=== PATIENT | male | born 1955 | race Caucasian/White ===

== ENCOUNTER 2020-08-22 07:59 | Day surgery (SDC) | payer MEDICARE ==
[2020-08-22] MEDS ORDERED: Dextrose 5%-Lactated Ringers 1,000 ML IV SCH (08:15)
[2020-08-22] MEDS ORDERED: Propofol 200 MG/20 ML SDV ONE (09:22)
[2020-08-22] MEDS ORDERED: fentaNYL 100 MCG/2 ML SDV ONE (09:22)
[2020-08-22] MEDS ORDERED: Midazolam 1 MG/ML 2 ML SDV ONE (09:22)
--- NOTE | 2020-09-01 09:10 | OR ---
DATE OF PROCEDURE: 08/22/2020 SURGEON: Danis Paulson MD PREOPERATIVE DIAGNOSIS: Indications for screening colonoscopy. POSTOPERATIVE DIAGNOSIS: Screening colonoscopy showing 3 colonic polyps. OPERATIVE PROCEDURE: Flexible colonoscopy with polypectomy by snare technique x3. ANESTHESIA: IV sedation. INDICATIONS FOR PROCEDURE: A 65-year-old presenting with indications for screening colonoscopy. He was noted to have some macrocytic anemia, which typically would not be associated with blood loss per se. The plan is to proceed with a colonoscopy with biopsies and/or polypectomy as indicated. Potential risks including bleeding and perforation were discussed, and the patient wishes to proceed. DETAILS OF PROCEDURE: The patient was taken to the operating room and placed in a left lateral decubitus position. IV sedation was administered after which the initial digital rectal exam was performed and was unremarkable. Colonoscope was then passed into the rectum with retroflexion revealing uncomplicated hemorrhoidal columns. Scope was then passed to the level of the cecum. The prep was quite good, only a small amount of liquid stool was present. There were no diverticula or areas of colitis. There were 3 small polyps falling in the range of 2 mm to 4 mm. One was located at 50 cm from the dentate line and 2 more or less side by side at 15 cm from the dentate line. All 3 were separately excised and sent for histologic evaluation. Good hemostasis at the polypectomy sites was confirmed, and the procedure was then concluded. Recommendation would be to repeat the colonoscopy in 3 years. Danis Paulson MD /[id number]
== END 2020-08-22 12:32 | disposition home or self-care (01) ==
LOC: JP.SDS 07:59
PROVIDERS: ATTEND Surgery
DX: Z12.11 Encounter for screening for malignant neoplasm of colon (principal); D12.6 Benign neoplasm of colon, unspecified; K64.9 Unspecified hemorrhoids
CPT/HCPCS: 45385; 88305; J2250; J2704; J3010; J7121

== ENCOUNTER 2023-12-22 17:10 | Inpatient (IN) | payer MEDICARE ==
[2023-12-22 18:45] LABS: BASOPHILS PERCENT AUTO 0.2 % (0.1-1.3); EOSINOPHILS PERCENT AUTO 0.2 % (0.0-5.4); HEMATOCRIT 34.6 % (38.4-49.7); HEMOGLOBIN 12.6 g/dL (12.9-16.9); IMMATURE GRAN PERCENT AUTO 0.2 % (0.0-0.7); LYMPHOCYTES ABSOLUTE AUTO 2.36 K/uL (0.8-3.3); LYMPHOCYTES PERCENT AUTO 40.5 % (11.4-47.7); MEAN CORPUSCULAR HEMOGLOBIN 38.1 pg (31.6-35.5); MEAN CORPUSCULAR HGB CONC 36.4 g/dL (31.6-35.5); MEAN CORPUSCULAR VOLUME 104.5 fL (81.4-99.0); MONOCYTES ABSOLUTE AUTO 0.53 K/uL (0.20-0.90); MONOCYTES PERCENT AUTO 9.1 % (3.3-12.6); NEUTROPHILS ABSOLUTE AUTO 2.91 K/uL (1.0-7.6); NEUTROPHILS PERCENT AUTO 49.8 % (40.0-78.1); PLATELET COUNT,PLT 174 K/uL (130-375); RED BLOOD CELL COUNT 3.31 M/uL (4.14-5.76); WHITE BLOOD CELL COUNT,WBC 5.8 K/uL (3.2-11.0)
[2023-12-22 18:47] LABS: BASOPHILS ABSOLUTE AUTO 0.01 K/uL (0.00-0.10); EOSINOPHILS ABSOLUTE AUTO 0.01 K/uL (0.00-0.40); IMMATURE GRAN ABSOLUTE AUTO 0.01 K/uL (0.00-0.23)
[2023-12-22 19:06] LABS: AMPHETAMINES SCREEN, URINE NEGATIVE (NEGATIVE); BARBITURATE SCREEN,URINE NEGATIVE (NEGATIVE); BENZODIAZEPINES SCREEN,URINE NEGATIVE (NEGATIVE); METHADONE SCREEN, URINE NEGATIVE (NEGATIVE); METHAMPHETAMINES SCREEN, URINE NEGATIVE (NEGATIVE); OXYCODONE SCREEN,URINE NEGATIVE (NEGATIVE); PROPOXYPHENE SCREEN,URINE NEGATIVE (NEGATIVE); THC SCREEN,URINE 50 NG/ML NEGATIVE (NEGATIVE)
[2023-12-22 19:18] LABS: CHLORIDE,CL 93 mmol/L (100-108); POTASSIUM,K 4.1 mmol/L (3.6-5.2); SODIUM,NA 127 mmol/L (140-148)
[2023-12-22 19:19] LABS: A/G RATIO 0.6 (1.2-2.2); ALBUMIN 2.8 g/dL (3.4-5.0); ANION GAP 16.1 mmol/L (5.0-14.0); BLOOD UREA NITROGEN,BUN 6 mg/dL (7-18); CALCIUM 8.3 mg/dL (8.5-10.1); CARBON DIOXIDE,CO2 22 mmol/L (21-32); CREATININE 0.8 mg/dL (0.8-1.3); EST CRCL DRUG DOSING (CG) 67.92 mL/min; ESTIMATED GFR 96 mL/min (>60); GLUCOSE RANDOM 85 mg/dL (74-106); PROTEIN TOTAL,TP 7.3 g/dL (6.4-8.2)
[2023-12-22 19:20] LABS: ALANINE AMINOTRANSFERASE,ALT 61 U/L (12-78); ALKALINE PHOSPHATASE 130 U/L (46-116); ASPARTATE AMNIOTRANSFERASE,AST 138 U/L (15-37); BILIRUBIN TOTAL 0.4 mg/dL (0.2-1.0)
[2023-12-22] MEDS: Sodium Chloride 0.9% 1,000 ML IV SCH ×2 (19:31→20:20)
[2023-12-22 19:32] LABS: MAGNESIUM 1.9 mg/dL (1.8-2.4)
[2023-12-22] MEDS ORDERED: LORazepam 1 MG Tab PO ONE (20:11)
[2023-12-22 20:20] LABS: INR 1.1; PROTHROMBIN TIME 11.2 sec (9.2-10.6)
[2023-12-22] MEDS: LORazepam 2 MG/ML SDV IVPUSH ONE (20:21)
[2023-12-22] MEDS ORDERED: Albuterol 0.083% 2.5 MG/3 ML Neb Soln NEB PRN (22:27)
[2023-12-22] MEDS: Pantoprazole 40 MG Vial IV ONE (23:22)
[2023-12-22] MEDS: Gabapentin 100 MG Cap PO SCH (23:23)
[2023-12-22] MEDS: LORazepam 2 MG/ML SDV IV SCH (23:23)
[2023-12-22] MEDS: LORazepam 1 MG Tab PO ONE (23:23)
[2023-12-22] MEDS: Melatonin 3 MG Tab PO SCH (23:23)
[2023-12-22] MEDS: Nicotine 21 MG/24 Hr Patch TRDERM PRN (23:25)
[2023-12-22] MEDS: Ondansetron 4 MG/2 ML SDV IV PRN (23:36)
[2023-12-23 04:49] LABS: HEMATOCRIT 30.8 % (38.4-49.7); HEMOGLOBIN 11.1 g/dL (12.9-16.9); MEAN CORPUSCULAR HEMOGLOBIN 37.5 pg (31.6-35.5); MEAN CORPUSCULAR VOLUME 104.1 fL (81.4-99.0); RED BLOOD CELL COUNT 2.96 M/uL (4.14-5.76); WHITE BLOOD CELL COUNT,WBC 5.7 K/uL (3.2-11.0)
[2023-12-23 05:05] LABS: INR 1.2
[2023-12-23 05:10] LABS: ALANINE AMINOTRANSFERASE,ALT 51 U/L (12-78); ALBUMIN 2.4 g/dL (3.4-5.0); ALKALINE PHOSPHATASE 109 U/L (46-116); ASPARTATE AMNIOTRANSFERASE,AST 124 U/L (15-37); BILIRUBIN TOTAL 0.6 mg/dL (0.2-1.0); BLOOD UREA NITROGEN,BUN 3 mg/dL (7-18); CALCIUM 8.1 mg/dL (8.5-10.1); CARBON DIOXIDE,CO2 25 mmol/L (21-32); CHLORIDE,CL 102 mmol/L (100-108); CREATININE 0.8 mg/dL (0.8-1.3); EST CRCL DRUG DOSING (CG) 66.98 mL/min; ESTIMATED GFR 96 mL/min (>60); GLUCOSE RANDOM 85 mg/dL (74-106); PROTEIN TOTAL,TP 6.1 g/dL (6.4-8.2); SODIUM,NA 134 mmol/L (140-148)
[2023-12-23 05:11] LABS: A/G RATIO 0.7 (1.2-2.2)
[2023-12-23] MEDS: Sodium Chloride 0.9% 1,000 ML IV SCH (05:12)
[2023-12-23] MEDS: Pantoprazole 40 MG Tab.CR PO SCH (07:30)
[2023-12-23] MEDS: Sodium Chloride 0.9% 10 ML Syringe FLUSH ONE (08:45)
[2023-12-23] MEDS: Folic Acid 1 MG Tab PO SCH (08:45)
[2023-12-23] MEDS: Thiamine 100 MG Tab PO SCH (08:45)
[2023-12-23] MEDS: Iopamidol 612 MG/ML 100 ML Bottle IV SCH (09:52)
[2023-12-23] MEDS: Sodium Chloride 0.9% 80 ML IV SCH (09:52)
[2023-12-23] MEDS: LORazepam 1 MG Tab PO SCH (11:56)
[2023-12-23] MEDS: Levothyroxine 50 MCG Tab PO ONE (14:08)
[2023-12-23] MEDS: Acetaminophen 325 MG Tab PO PRN (22:30)
[2023-12-23] MEDS: Albuterol/Ipratropium 3.0-0.5 MG/3 ML Neb Soln NEB SCH (22:58)
[2023-12-23] MEDS: Haloperidol Lactate 5 MG/ML SDV IVPUSH PRN (23:03)
[2023-12-24] MEDS: Sodium Chloride 0.9% 500 ML IV ONE (01:10)
[2023-12-24] MEDS: Sodium Chloride 0.9% 1,000 ML IV SCH ×2 (02:29→17:21)
[2023-12-24 04:51] LABS: HEMATOCRIT 30.4 % (38.4-49.7); HEMOGLOBIN 10.5 g/dL (12.9-16.9); MEAN CORPUSCULAR HGB CONC 34.5 g/dL (31.6-35.5); MEAN CORPUSCULAR VOLUME 110.1 fL (81.4-99.0); RED BLOOD CELL COUNT 2.76 M/uL (4.14-5.76); WHITE BLOOD CELL COUNT,WBC 9.3 K/uL (3.2-11.0)
[2023-12-24 05:06] LABS: CREATININE 0.7 mg/dL (0.8-1.3); EST CRCL DRUG DOSING (CG) 76.55 mL/min; POTASSIUM,K 3.6 mmol/L (3.6-5.2)
[2023-12-24 05:09] LABS: ANION GAP 8.6 mmol/L (5.0-14.0)
[2023-12-24] MEDS: Levothyroxine 50 MCG Tab PO SCH (07:19)
[2023-12-24] MEDS: Albuterol/Ipratropium 3.0-0.5 MG/3 ML Neb Soln NEB SCH (10:37)
[2023-12-24] MEDS: Ondansetron 4 MG Tab.DIS PO PRN (14:58)
[2023-12-24] MEDS: Sodium Chloride 0.9% 500 ML IV SCH (16:17)
[2023-12-24] MEDS: cefTRIAXone 2 GM in Sodium Chloride 0.9% 50 ML IV SCH (20:18)
[2023-12-25 04:51] LABS: HEMATOCRIT 29.2 % (38.4-49.7); MEAN CORPUSCULAR HEMOGLOBIN 37.7 pg (31.6-35.5); MEAN CORPUSCULAR HGB CONC 34.2 g/dL (31.6-35.5); MEAN CORPUSCULAR VOLUME 110.2 fL (81.4-99.0); RED BLOOD CELL COUNT 2.65 M/uL (4.14-5.76); WHITE BLOOD CELL COUNT,WBC 12.1 K/uL (3.2-11.0)
[2023-12-25 05:08] LABS: A/G RATIO 0.5 (1.2-2.2); ALANINE AMINOTRANSFERASE,ALT 29 U/L (12-78); ALBUMIN 1.8 g/dL (3.4-5.0); ALKALINE PHOSPHATASE 92 U/L (46-116); ASPARTATE AMNIOTRANSFERASE,AST 40 U/L (15-37); BILIRUBIN TOTAL 0.3 mg/dL (0.2-1.0); BLOOD UREA NITROGEN,BUN 3 mg/dL (7-18); CALCIUM 7.8 mg/dL (8.5-10.1); CARBON DIOXIDE,CO2 27 mmol/L (21-32); CHLORIDE,CL 101 mmol/L (100-108); CREATININE 0.6 mg/dL (0.8-1.3); EST CRCL DRUG DOSING (CG) 89.31 mL/min; ESTIMATED GFR 104 mL/min (>60); GLUCOSE RANDOM 100 mg/dL (74-106); MAGNESIUM 1.3 mg/dL (1.8-2.4); POTASSIUM,K 3.3 mmol/L (3.6-5.2); PROTEIN TOTAL,TP 5.5 g/dL (6.4-8.2); SODIUM,NA 134 mmol/L (140-148)
[2023-12-25 05:11] LABS: ANION GAP 9.3 mmol/L (5.0-14.0)
[2023-12-25] MEDS: Magnesium Sulfate/Water 2 GM in Premix Bag 1 BAG IV SCH (08:31)
[2023-12-25] MEDS: NS + KCl 20mEq/L 1,000 ML IV SCH (10:17)
[2023-12-25] MEDS: Potassium Chloride 20 MEQ Tab.ER PO ONE (10:22)
[2023-12-26 04:29] LABS: HEMATOCRIT 28.7 % (38.4-49.7); HEMOGLOBIN 9.9 g/dL (12.9-16.9); MEAN CORPUSCULAR HEMOGLOBIN 38.5 pg (31.6-35.5); MEAN CORPUSCULAR HGB CONC 34.5 g/dL (31.6-35.5); MEAN CORPUSCULAR VOLUME 111.7 fL (81.4-99.0); RED BLOOD CELL COUNT 2.57 M/uL (4.14-5.76); WHITE BLOOD CELL COUNT,WBC 7.2 K/uL (3.2-11.0)
[2023-12-26 04:45] LABS: CALCIUM 8.2 mg/dL (8.5-10.1); CREATININE 0.5 mg/dL (0.8-1.3); EST CRCL DRUG DOSING (CG) 107.17 mL/min; POTASSIUM,K 3.9 mmol/L (3.6-5.2)
[2023-12-26 05:13] LABS: ANION GAP 7.9 mmol/L (5.0-14.0)
[2023-12-26] MEDS: Gabapentin 100 MG Cap PO SCH (14:11)
[2023-12-26] MEDS: Divalproex Sodium Delayed-Release 125 MG Cap.Sprink PO ONE (16:19)
[2023-12-26] MEDS ORDERED: Divalproex Sodium 250 MG Tab.ER PO ONE (17:00)
[2023-12-27 05:18] LABS: A/G RATIO 0.5 (1.2-2.2); ALANINE AMINOTRANSFERASE,ALT 32 U/L (12-78); ALBUMIN 1.9 g/dL (3.4-5.0); ALKALINE PHOSPHATASE 94 U/L (46-116); ASPARTATE AMNIOTRANSFERASE,AST 43 U/L (15-37); BILIRUBIN TOTAL 0.1 mg/dL (0.2-1.0); BLOOD UREA NITROGEN,BUN 7 mg/dL (7-18); CALCIUM 8.6 mg/dL (8.5-10.1); CARBON DIOXIDE,CO2 31 mmol/L (21-32); CHLORIDE,CL 97 mmol/L (100-108); CREATININE 0.6 mg/dL (0.8-1.3); EST CRCL DRUG DOSING (CG) 102.88 mL/min; ESTIMATED GFR 104 mL/min (>60); GLUCOSE RANDOM 93 mg/dL (74-106); MAGNESIUM 1.8 mg/dL (1.8-2.4); POTASSIUM,K 4.1 mmol/L (3.6-5.2); SODIUM,NA 132 mmol/L (140-148)
[2023-12-27 05:21] LABS: ANION GAP 8.1 mmol/L (5.0-14.0)
[2023-12-28 05:11] LABS: BASOPHILS PERCENT AUTO 0.4 % (0.1-1.3); EOSINOPHILS ABSOLUTE AUTO 0.04 K/uL (0.00-0.40); EOSINOPHILS PERCENT AUTO 0.8 % (0.0-5.4); HEMATOCRIT 30.6 % (38.4-49.7); HEMOGLOBIN 10.7 g/dL (12.9-16.9); IMMATURE GRAN PERCENT AUTO 0.4 % (0.0-0.7); LYMPHOCYTES ABSOLUTE AUTO 1.57 K/uL (0.8-3.3); LYMPHOCYTES PERCENT AUTO 31.6 % (11.4-47.7); MEAN CORPUSCULAR HEMOGLOBIN 38.2 pg (31.6-35.5); MEAN CORPUSCULAR VOLUME 109.3 fL (81.4-99.0); MONOCYTES ABSOLUTE AUTO 0.74 K/uL (0.20-0.90); MONOCYTES PERCENT AUTO 14.9 % (3.3-12.6); NEUTROPHILS ABSOLUTE AUTO 2.58 K/uL (1.0-7.6); NEUTROPHILS PERCENT AUTO 51.9 % (40.0-78.1); PLATELET COUNT,PLT 215 K/uL (130-375)
[2023-12-28 05:19] LABS: BASOPHILS ABSOLUTE AUTO 0.02 K/uL (0.00-0.10); IMMATURE GRAN ABSOLUTE AUTO 0.02 K/uL (0.00-0.23)
[2023-12-28 05:25] LABS: CALCIUM 9.2 mg/dL (8.5-10.1); CREATININE 0.6 mg/dL (0.8-1.3); EST CRCL DRUG DOSING (CG) 102.88 mL/min; POTASSIUM,K 3.9 mmol/L (3.6-5.2)
[2023-12-28 05:32] LABS: ANION GAP 8.9 mmol/L (5.0-14.0)
[2023-12-28 10:01] LABS: IRON,FE 42 ug/dL (65-175); PERCENT FE SATURATION 21 % (20-55); TOTAL IRON BINDING CAPACITY 199 ug/dl (250-450)
[2023-12-28] MEDS: Sennosides/Docusate Sodium 50-8.6 MG Tab PO PRN (14:05)
[2023-12-28] MEDS: Docusate Sodium 100 MG Cap PO PRN (20:23)
[2023-12-28] MEDS: Magnesium Oxide 400 MG Tab PO SCH (20:24)
[2023-12-29] MEDS: Magnesium Hydroxide 400 MG/5 ML Susp 30 ML Cup PO PRN (08:32)
[2023-12-29] MEDS: Ferrous Sulfate 325 MG Tab PO SCH (08:33)
== END 2023-12-29 17:45 | disposition home or self-care (01) | DRG 897 ==
LOC: JP.ED 17:10 → JP.ICU 21:53 → JP.MS 12-28 15:08
PROVIDERS: ADMIT Internal Medicine; ATTEND Internal Medicine
DX: F10.10 Alcohol abuse, uncomplicated (principal); F10.131 Alcohol abuse with withdrawal delirium; Y90.7 Blood alcohol level of 200-239 mg/100 ml; Z79.899 Other long term (current) drug therapy; E87.1 Hypo-osmolality and hyponatremia; F10.132 Alcohol abuse with withdrawal with perceptual disturbance; F17.210 Nicotine dependence, cigarettes, uncomplicated; R63.4 Abnormal weight loss; R13.10 Dysphagia, unspecified; K44.9 Diaphragmatic hernia without obstruction or gangrene; D64.9 Anemia, unspecified; E83.42 Hypomagnesemia; E03.9 Hypothyroidism, unspecified; F10.121 Alcohol abuse with intoxication delirium; Z98.49 Cataract extraction status, unspecified eye; Z98.890 Other specified postprocedural states; Z68.20 Body mass index [BMI] 20.0-20.9, adult
CPT/HCPCS: 36415; 70450; 71045; 71045-26; 71260; 71260-26; 74177; 74177-26; 80048; 80053; 80305-QW; 80307; 83550; 83735; 84100; 84439; 84443; 85025; 85027; 85610; 94640; 96361; 96374; 97161-GP; 97165-GO; 97530-GP; 99222; 99232; 99239; 99285; 99285-25; A9270-GY; C9113; J0696; J1630; J2060; J2405; J3475; J3480; J3490; J7030; J7040; J7620; Q0162; Q9967